=== PATIENT | female | born 1990 ===

== ENCOUNTER 2021-05-15 08:00 | Outpatient (CLI) | payer OTHER ==
[~2021-05-15 08:00] MED LIST: CIPRO500 MG PO; GILTUSS LIQUID237 M1 PO; KETO10TA2 PO; PROVENTIL3 ML/2.5 M IH; PYRIDIUM DS200 MG PO; ZITHROMAX Z PACK PO
== END 2021-05-15 08:30 | disposition home or self-care (01) ==
LOC: PPH VACUNA 08:00
DX: Z23 Encounter for immunization (principal)